=== PATIENT | female | born 1975 | race American Indian/Alaskan Native ===

== ENCOUNTER 2019-05-30 12:38 | Emergency (ER) | payer MEDICAID ==
[2019-05-30 12:48] VITALS: BP 155/96
[2019-05-30] MEDS ORDERED: DELTASONE PO ONE (15:44)
--- NOTE | 2019-05-30 15:49 | Emergency Department Report ---
ED Extremity Problem HPI - General Chief complaint: Extremity Injury, Upper Stated complaint: CAN'T MOVE SHOULDER Time Seen by Provider: 05/30/19 13:58 Source: patient, EMS Mode of arrival: Wheelchair Limitations: No Limitations - History of Present Illness Initial comments: Hx limited by patient uncooperative and hostile with staff. Reports she awoke this morning after sleeping on her left shoulder and that it was painful to move. Reports hx of chronic pancreatitis and RA. Reports she takes narcotics for pain. - Related Data Previous Rx's Medication Instructions Recorded Last Taken Type predniSONE [Deltasone] 20 mg PO QDAY #3 tab 05/30/19 Unknown Rx Allergies Allergy/AdvReac Type Severity Reaction Status Date / Time morphine Allergy Unknown Verified 05/30/19 12:40 Penicillins Allergy Unknown Verified 05/30/19 12:40 ED Review of Systems ROS: Stated complaint: CAN'T MOVE SHOULDER Other details as noted in HPI Other: GENERAL: No weight change, fatigue, weakness, fever, chills, or night sweats SKIN: No changes in skin or hair, no itching, no rashes, no jaundice HEAD: No trauma, headache, or visual changes EYES: No blurriness, tearing, itching, acute visual loss, conjunctival discoloration, or scleral icterus EARS: No hearing loss, tinnitus, vertigo, or earache NOSE: No rhinorrhea, stuffiness, sneezing, itching, or epistaxis MOUTH: No bleeding gums, hoarseness, sore throat, or swelling CARDIAC: No new murmur, chest pain, palpitations, dyspnea on exertion, orthopnea, PND, or edema RESPIRATORY: No shortness of breath, wheeze, cough, sputum production, h emoptysis, pneumonia, asthma, bronchitis, or emphysema GI: No change in appetite, nausea, vomiting, dysphagia, change in bowel frequency, diarrhea, constipation, bleeding, hematemesis, melena, hematochezia, or abdominal pain URINARY: No frequency, urgency, polyuria, dysuria, hematuria, or incontinence MUSCULOSKELETAL: Left shoulder decreased ROM and pain. Denies trauma NEUROLOGIC: No loss of sensation, numbness, tingling, tremors, weakness, paralysis, seizures HEMATOLOGIC: No anemia, easy bruising, bleeding, petechiae, or purpura ENDOCRINE: No hot or cold intolerance, sweating, polyuria, polydipsia or, polyphagia no thyroid problems PSYCHIATRIC: No change in mood, no anxiety, no depression ED Past Medical Hx - Past Medical History Previous Medical History?: Yes Additional medical history: pancititis - Surgical History Past Surgical History?: No - Social History Smoking Status: Current Every Day Smoker Substance Use Type: Alcohol - Medications Home Medications: Home Medications Medication Instructions Recorded Confirmed Last Taken Type predniSONE [Deltasone] 20 mg PO QDAY #3 tab 05/30/19 Unknown Rx ED Physical Exam - General Limitations: No Limitations - Other Other exam information: GENERAL: Patient in no acute distress HEAD: Normocephalic, atraumatic HEART: pulses are symmetric LUNGS: No resp distress MUSCULOSKELETAL: PAtient uncooperative with exam and would not allow passive ROM left shoulder. PAtient resting comfortably in the room upon entry. NEUROLOGIC: GCS 15, Alert and Oriented x3, Cranial nerves intact, normal sensation, normal strength, normal gait, no cerebellar deficit PSYCHIATRIC: uncooperative, hostile with staff, No homicidal or suicidal ideation, no hallucinations SKIN: Skin is warm and dry, no wounds, no rashes ED Course Vital Signs 05/30/19 12:46 Temperature 98.4 F Pulse Rate 135 H Respiratory 16 Rate Blood Pressure 155/96 O2 Sat by Pulse 100 Oximetry ED Medical Decision Making - Medical Decision Making Plan discharge with outpatient follow up. Treat for possible RA exacerbation. Patient tachycardic but noted hostile and aggressive with staff that attempt to assess her. Patient demanding narcotic pain medication. Return if worsening. Critical care attestation.: If time is entered above; I have spent that time in minutes in the direct care of this critically ill patient, excluding procedure time. ED Disposition Clinical Impression: Shoulder pain Qualifiers: Chronicity: unspecified Laterality: left Qualified Code(s): M25.512 - Pain in left shoulder Disposition: DC-01 TO HOME OR SELFCARE Is pt being admited?: No Condition: Stable Instructions: Arthralgia (ED) Prescriptions: predniSONE [Deltasone] 20 mg PO QDAY #3 tab Referrals: CHIRAG BLACKWELL MD [Primary Care Provider] - 2-3 Days LOVE SCHNEIDER MD [Staff Physician] - 2-3 Days Time of Disposition: 15:46
== END 2019-05-30 16:10 | disposition home or self-care (01) ==
LOC: ED 12:38
DX: M25.512 Pain in left shoulder (principal); F17.200 Nicotine dependence, unspecified, uncomplicated; Z87.19 Personal history of other diseases of the digestive system; Z88.5 Allergy status to narcotic agent; Z88.0 Allergy status to penicillin
CPT/HCPCS: 99283; J7512

== ENCOUNTER 2020-10-19 00:22 | Emergency (ER) | payer MEDICAID ==
[2020-10-19 00:51] VITALS: BP 112/69
[2020-10-19 01:57] LABS: Basophils % (Auto) 0.3 % (0.0-1.8); Eosinophils # (Auto) 0.1 K/mm3 (0.0-0.4); Eosinophils % (Auto) 0.5 % (0.0-4.3); Lymphocytes % (Auto) 14.6 % (13.4-35.0); Mean Corpuscular HGB Conc 36 % (30-34); Mean Corpuscular Volume 83 fl (79-97); Monocytes # (Auto) 1.6 K/mm3 (0.0-0.8); Monocytes % (Auto) 11.7 % (0.0-7.3); Platelet Count 199 K/mm3 (140-440); Red Blood Count 4.94 M/mm3 (3.65-5.03); Red Cell Distribution Width 13.1 % (13.2-15.2)
[2020-10-19 02:01] LABS: Hematocrit 40.8 % (30.3-42.9); Hemoglobin 14.7 gm/dl (10.1-14.3)
[2020-10-19 02:12] LABS: Alanine Aminotransferase 11 units/L (7-56); Albumin 4.1 g/dL (3.9-5); Blood Urea Nitrogen 7 mg/dL (7-17); Calcium 9.7 mg/dL (8.4-10.2); Hemolysis Index 3
[2020-10-19 02:14] LABS: BUN/Creatinine Ratio 10
[2020-10-19] MEDS ORDERED: ONDANSETRON 4 MG/2 ML INJ IV STA (02:51)
[2020-10-19] MEDS ORDERED: SODIUM CHLORIDE 0.9% 1000 ML 1,000 ML IV ONE (02:51)
[2020-10-19] MEDS ORDERED: diphenhydrAMINE 50 MG/ML VIAL IV STA (03:05)
[2020-10-19] MEDS ORDERED: METOCLOPRAMIDE 10 MG/2 ML INJ IV STA (03:05)
[2020-10-19] MEDS ORDERED: KETOROLAC 30 MG/1 ML INJ IV STA (03:06)
[2020-10-19 03:38] LABS: Bacteria,Urine 1+ /HPF (Negative); Bilirubin,Urine NEG (Negative); Blood,Urine NEG (Negative); Color,Urine Yellow (Yellow); Mucus,Urine FEW /HPF; Protein,Urine <15 mg/dL mg/dL (Negative); Urobilinogen,Urine < 2.0 mg/dL (<2.0)
--- NOTE | 2020-10-19 03:50 | Cat Scan Report ---
CT ABDOMEN AND PELVIS WITH CONTRAST HISTORY: Right-sided abdominal pain. COMPARISON: None TECHNIQUE: Routine abdominal and pelvic CT exam performed following intravenous contrast administrat ion. Patient received 100 mL IV Omnipaque 300. All CT scans at this location are performed using CT d ose reduction for ALARA by means of automated exposure control. FINDINGS: CT ABDOMEN: Lung Bases: No significant abnormality. Liver: No significant abnormality. Biliary: Gallbladder is surgically absent. Spleen: No significant abnormality. Unenlarged. Pancreas: No significant abnormality. Adrenals: No significant abnormality. Kidneys: No significant abnormality. Lymphatics: No lymphadenopathy. Vasculature: Atherosclerotic but nonaneurysmal abdominal aorta. Bowel/Peritoneum: No significant abnormality. No free air. No free fluid. Normal appendix. CT PELVIC: : No significant abnormality. Lymphatics: No lymphadenopathy. Osseous Structures: No aggressive appearing osseous lesions. Additional Findings: None IMPRESSION: 1. No acute findings. Signer Name: Rob Camara MD Signed: 10/19/2020 3:49 AM Workstation Name: [id number]
--- NOTE | 2020-10-19 04:23 | Emergency Department Report ---
ED Abdominal Pain HPI - General Chief Complaint: Abdominal Pain Stated Complaint: EMESIS Time Seen by Provider: 10/19/20 01:50 Source: patient Mode of arrival: Ambulatory Limitations: No Limitations - History of Present Illness Initial Comments: 45-year-old -[place] female with a extensive medical problems including insulin-dependent diabetes, fibromyalgia, all rheumatoid arthritis presents emergency department complaining of a 3-day history of vomiting and abdominal pain with no diarrhea. Reports no hemoptysis no hematemesis no hematemesis no hematochezia no melena no fever, chills, sweats no trauma. Symptoms have not been improving with utilization of oral Zofran 8 mg ODT she was advised by primary care doctor to come to emergency department for fluids and further evaluation. -: Gradual Location: RUQ, RLQ Radiation: RUQ, RLQ Migration to: no migration Severity: mild Severity scale (0 -10): 4 Quality: dull Consistency: constant Improves With: nothing Worsens With: nothing Associated Symptoms: nausea, vomiting. denies: constipation, dysuria, hematemesis, melena, hematuria, anorexia - Related Data Previous Rx's Medication Instructions Recorded Last Taken Type predniSONE [Deltasone] 20 mg PO QDAY #3 tab 05/30/19 Unknown Rx Hyoscyamine Subl [Levsin Sl] 0.125 mg SL Q4HR PRN #16 tablet 10/19/20 Unknown Rx Metoclopramide [Reglan] 10 mg PO BID #10 tab 10/19/20 Unknown Rx Allergies Allergy/AdvReac Type Severity Reaction Status Date / Time clarithromycin Allergy Anaphylaxis Verified 10/19/20 00:45 codeine Allergy Anaphylaxis Verified 10/19/20 00:45 latex Allergy Anaphylaxis Verified 10/19/20 00:45 methadone Allergy Anaphylaxis Verified 10/19/20 00:45 methylprednisolone Allergy Anaphylaxis Verified 10/19/20 00:45 [From Medrol] metronidazole [From Flagyl] Allergy Anaphylaxis Verified 10/19/20 00:45 morphine Allergy Unknown Verified 05/30/19 12:40 orange Allergy Anaphylaxis Verified 10/19/20 00:45 oxycodone [From OxyContin] Allergy Anaphylaxis Verified 10/19/20 00:45 pecan nut Allergy Anaphylaxis Verified 10/19/20 00:45 Penicillins Allergy Unknown Verified 05/30/19 12:40 kadeem Allergy Anaphylaxis Verified 10/19/20 00:45 vancomycin Allergy Anaphylaxis Verified 10/19/20 00:45 walnut Allergy Anaphylaxis Verified 10/19/20 00:45 ED Review of Systems ROS: Stated complaint: EMESIS Other details as noted in HPI Comment: All other systems reviewed and negative ED Past Medical Hx - Past Medical History Previous Medical History?: Yes Hx Congestive Heart Failure: Yes Hx Diabetes: Yes Hx Headaches / Migraines: Yes Additional medical history: lupus, fibromyalgia, - Surgical History Hx Cholecystectomy: Yes - Social History Smoking Status: Current Every Day Smoker Substance Use Type: Alcohol, Marijuana - Medications Home Medications: Home Medications Medication Instructions Recorded Confirmed Last Taken Type predniSONE [Deltasone] 20 mg PO QDAY #3 tab 05/30/19 Unknown Rx Hyoscyamine Subl [Levsin Sl] 0.125 mg SL Q4HR PRN #16 tablet 10/19/20 Unknown Rx Metoclopramide [Reglan] 10 mg PO BID #10 tab 10/19/20 Unknown Rx ED Physical Exam - General Limitations: No Limitations General appearance: alert, in no apparent distress - Head Head exam: Present: atraumatic, normocephalic - Eye Eye exam: Present: normal appearance - ENT ENT exam: Present: mucous membranes moist - Neck Neck exam: Present: normal inspection - Respiratory Respiratory exam: Present: normal lung sounds bilaterally. Absent: respiratory distress - Cardiovascular Cardiovascular Exam: Present: regular rate, normal rhythm. Absent: systolic murmur, diastolic murmur, rubs, gallop - GI/Abdominal GI/Abdominal exam: Present: soft, tenderness (No Rovsing, no Gaytan Pierre comments abdomen is soft), normal bowel sounds - Extremities Exam Extremities exam: Present: normal inspection - Back Exam Back exam: Present: normal inspection - Neurological Exam Neurological exam: Present: alert, oriented X3 - Psychiatric Psychiatric exam: Present: normal affect, normal mood - Skin Skin exam: Present: warm, dry, intact, normal color. Absent: rash ED Course Vital Signs 10/19/20 00:46 Temperature 98.2 F Pulse Rate 97 H Respiratory 18 Rate Blood Pressure 112/69 O2 Sat by Pulse 100 Oximetry ED Medical Decision Making - Lab Data Result diagrams: 10/19/20 01:27 10/19/20 01:27 - Radiology Data Radiology results: report reviewed [facility] [address] [place] [address] Cat Scan Report Signed Patient: ENIO URRUTIA MR#: [id number] : 1975 Acct:[id number] Age/Sex: 45 / F ADM Date: 10/19/20 Loc: ED Attending Dr: Ordering Physician: YVONNE SERRATO Date of Service: 10/19/20 Procedure(s): CT abdomen pelvis w con Accession Number(s): [id number] cc: YVONNE SERRATO CT ABDOMEN AND PELVIS WITH CONTRAST HISTORY: Right-sided abdominal pain. COMPARISON: None TECHNIQUE: Routine abdominal and pelvic CT exam performed following intravenous contrast administration. Patient received 100 mL IV Omnipaque 300. All CT scans at this location are per formed using CT dose reduction for ALARA by means of automated exposure control. FINDINGS: CT ABDOMEN: Lung Bases: No significant abnormality. Liver: No significant abnormality. Biliary: Gallbladder is surgically absent. Spleen: No significant abnormality. Unenlarged. Pancreas: No significant abnormality. Adrenals: No significant abnormality. Kidneys: No significant abnormality. Lymphatics: No lymphadenopathy. Vasculature: Atherosclerotic but nonaneurysmal abdominal aorta. Bowel/Peritoneum: No significant abnormality. No free air. No free fluid. Normal appendix. CT PELVIC: : No significant abnormality. Lymphatics: No lymphadenopathy. Osseous Structures: No aggressive appearing osseous lesions. Additional Findings: None IMPRESSION: 1. No acute findings. Signer Name: Rob Camara MD Signed: 10/19/2020 3:49 AM Workstation Name: [id number] Transcribed By: ASTER Dictated By: Rob Camara MD Electronically Authenticated By: Rob Camara MD Signed Date/Time: 10/19/20348 DD/ 7 TD/TT: - Medical Decision Making This patient presents with abdominal pain of unclear etiology. A CT scan was performed to evaluate for potential causes of the abdominal pain, however, neither the clinical exam nor the CT has identified an emergent etiology for the abdominal pain. Specifically, given the benign exam, the laboratory studies, and unremarkable CT, I have a very low suspicion for appendicitis, ischemic bowel, bowel perforation, or any other life threatening disease. I have discussed with the patient the level of uncertainty with undifferentiated ab dominal pain and clearly explained the need to follow-up as noted on the discharge instructions, or return to the Emergency Department immediately if the pain worsens, develops fever, persistent and uncontrollable vomiting, or for any new symptoms or concerns. Critical care attestation.: If time is entered above; I have spent that time in minutes in the direct care of this critically ill patient, excluding procedure time. ED Disposition Clinical Impression: Abdominal pain, Vomiting Disposition: DC-01 TO HOME OR SELFCARE Is pt being admited?: No Does the pt Need Aspirin: No Condition: Stable Instructions: Abdominal Pain (ED), Nausea and Vomiting, Adult, [id number], Abdominal Pain, Adult Referrals: PRASHANTH PENDLETON MD [Primary Care Provider] - 3-5 Days
== END 2020-10-19 04:53 | disposition home or self-care (01) ==
LOC: ED 00:22
DX: R10.31 Right lower quadrant pain (principal); R10.11 Right upper quadrant pain; R11.2 Nausea with vomiting, unspecified; I50.9 Heart failure, unspecified; E11.9 Type 2 diabetes mellitus without complications; G43.909 Migraine, unspecified, not intractable, without status migrainosus; F17.200 Nicotine dependence, unspecified, uncomplicated; F12.10 Cannabis abuse, uncomplicated; Z79.899 Other long term (current) drug therapy; Z88.8 Allergy status to other drugs, medicaments and biological substances
CPT/HCPCS: 36415; 74177; 80053; 81001; 84703; 85025; 87086; 96361; 96374; 96375; 99284; J1200; J1885; J2405; J2765; J7030; Q9967